=== PATIENT | male | born 2000 | race Caucasian/White ===

== ENCOUNTER 2019-06-13 13:29 | Emergency (ER) | payer BC, MEDICAID ==
[~2019-06-13] VITALS: Ht 177.8 cm; Wt 79.0 kg
[~2019-06-13 13:29] MED LIST: CONCERTA; IBUP-1984 PO; NO HOME MEDS
[2019-06-13 14:09] LABS: BASOPHILS # (AUTO) 0.1 X10'3 (0-0.2); BASOPHILS % (AUTO) 0.5 % (0-1); EOSINOPHILS # (AUTO) 0.2 X10'3 (0-0.9); EOSINOPHILS % (AUTO) 1.1 % (0-6); HEMATOCRIT 45.2 % (42.0-52.0); LYMPHOCYTES # (AUTO) 0.7 X10'3 (1.1-4.8); LYMPHOCYTES % (AUTO) 4.3 % (21-51); MEAN CORPUSCULAR HEMOGLOBIN 28.7 PG (27.0-31.0); MEAN CORPUSCULAR HGB CONC 33.2 g/dL (33.0-36.5); MEAN CORPUSCULAR VOLUME 86.3 FL (78-98); MEAN PLATELET VOLUME 8.1 FL (7.4-10.4); MONOCYTES # (AUTO) 1.7 X10'3 (0-0.9); MONOCYTES % (AUTO) 10.2 % (2-12); NEUTROPHILS % (AUTO) 83.9 % (42-75); PLATELET COUNT 213 X10'3 (140-440); RED BLOOD COUNT 5.24 X10'6 (4.70-6.10); RED CELL DISTRIBUTION WIDTH 13.2 % (11.5-14.5); WHITE BLOOD COUNT 16.7 X10'3 (4.5-11.0)
[2019-06-13] MEDS ORDERED: morphine 4 MG/ML inj SYRINge IV PRN (14:10)
[2019-06-13] MEDS ORDERED: ondansetron/PF 4mg/2ml inj IV ONE ×2 (14:10→15:05)
[2019-06-13] MEDS ORDERED: normal saline 1000ML IV soln IVB ONE (14:10)
[2019-06-13 15:07] LABS: ALANINE AMINOTRANSFERASE 33 U/L (12-78); ALBUMIN 3.8 G/DL (3.4-5.0); ALKALINE PHOSPHATASE 96 IU/L (20-180); AMYLASE 52 U/L (25-115); ANION GAP 8 (8-16); ASPARTATE AMINO TRANSFERASE 21 U/L (10-37); BILIRUBIN,TOTAL 1.6 MG/DL (0.1-1.0); BLOOD UREA NITROGEN 12 MG/DL (7-18); BUN/CREATININE RATIO 11.4 (5.4-32.0); CALCIUM 8.9 MG/DL (8.5-10.1); CHLORIDE 101 MMOL/L (99-107); CREATININE 1.05 MG/DL (0.60-1.10); GLUCOSE 116 MG/DL (70-104); LIPASE 121 U/L (73-393); POTASSIUM 4.3 MMOL/L (3.5-5.1); SODIUM 137 MMOL/L (135-145); TOTAL CARBON DIOXIDE 27.7 MMOL/L (24-32); TOTAL PROTEIN 7.8 G/DL (6.4-8.2); eGFR > 90 ML/MIN
[2019-06-13 15:54] LABS: CLARITY,URINE CLEAR (Clear); COLOR,URINE YELLOW (Yellow); GLUCOSE, URINE NEGATIVE (Neg); KETONES,URINE 40 mg/dl (Neg); LEUKOCYTE ESTERASE ,URINE NEGATIVE (Neg); NITRITES, URINE NEGATIVE (Neg); OCCULT BLOOD,URINE NEGATIVE (Neg); PROTEIN,URINE NEGATIVE (Neg); UROBILINOGEN,URINE 0.2 E.U/dL (0.2-1.0)
[2019-06-13 15:56] LABS: UA COLLECTION TYPE NON-SPECIFIED
[2019-06-13] MEDS ORDERED: ONDA4TAB6 PO (16:30)
[2019-06-13 16:46] VITALS: BP 126/61
== END 2019-06-13 16:47 | disposition home or self-care (01) ==
LOC: ER 13:29
DX: I88.0 Nonspecific mesenteric lymphadenitis (principal); R11.2 Nausea with vomiting, unspecified; D72.829 Elevated white blood cell count, unspecified; Z79.899 Other long term (current) drug therapy
CPT/HCPCS: 36415; 74176; 80053; 81003; 82150; 83690; 85025; 85610; 96361; 96374; 96375; 96376; 99284; J2270; J2405; J7030

== ENCOUNTER 2020-02-02 18:34 | Emergency (ER) | payer MEDICAID ==
[~2020-02-02] VITALS: Ht 177.8 cm; Wt 72.7 kg
[~2020-02-02 18:34] MED LIST changes: +ONDA4TAB6 PO
[2020-02-02 18:38] VITALS: BP 105/44
[2020-02-02] MEDS ORDERED: sulfamethoxazole/trimethoprim DS (800/160mg) tablet PO ONE (19:30)
[2020-02-02] MEDS ORDERED: SULF1TAB49 PO (19:34)
== END 2020-02-02 19:45 | disposition home or self-care (01) ==
LOC: ER 18:34
DX: L03.012 Cellulitis of left finger (principal); Z79.899 Other long term (current) drug therapy
CPT/HCPCS: 99283

== ENCOUNTER 2021-08-18 14:20 | Emergency (ER) | payer OTHER, MEDICAID ==
[~2021-08-18] VITALS: Ht 177.8 cm; Wt 72.7 kg
[2021-08-18 14:34] VITALS: BP 122/68
[2021-08-18] MEDS ORDERED: LIDOcaine 1% W/epiNEPHrine 1:200,000 10ml vial IJ ONE (14:45)
[2021-08-18] MEDS ORDERED: bacitracin 15gm ointment TP ONE (14:45)
== END 2021-08-18 15:44 | disposition home or self-care (01) ==
LOC: ER 14:21
DX: S61.211A Laceration without foreign body of left index finger without damage to nail, initial encounter (principal); Z79.899 Other long term (current) drug therapy; W27.4XXA Contact with kitchen utensil, initial encounter; Y93.89 Activity, other specified; Y92.89 Other specified places as the place of occurrence of the external cause; Y99.8 Other external cause status
CPT/HCPCS: 12001; 99282